=== PATIENT | male | born 1995 | race African-American/Black ===

== ENCOUNTER 2017-01-05 13:22 | Emergency (ER) | payer SELFPAY ==
[~2017-01-05] VITALS: Ht 172.7 cm; Wt 65.0 kg
[2017-01-05 17:25] LABS: HEMATOCRIT. 45.3 % (42.0-52.0); HEMOGLOBIN. 15.3 g/dL (14.0-18.0); MEAN CORPUSCULAR HEMOGLOBIN 28.3 pg (28.0-32.0); MEAN CORPUSCULAR VOLUME 83.7 fL (80.0-94.0); PLATELET 274 x1000/uL (130-400); RED BLOOD CELL COUNT 5.41 mill/uL (4.7-6.1); RED CELL DISTRIBUTION WIDTH 13.2 % (11.6-14.6)
[2017-01-05 17:34] LABS: PLATELET ESTIMATE NORMAL
[2017-01-05 17:45] LABS: *AMPHETAMINES SCREEN URINE NEGATIVE (NEGATIVE); *BARBITURATES SCREEN URINE NEGATIVE (NEGATIVE); *BENZODIAZEPINES SCREEN URINE NEGATIVE (NEGATIVE); *COCAINE SCREEN URINE NEGATIVE (NEGATIVE); CANNABINOID URINE SCREEN PRESUMTIVE POSITIVE (NEGATIVE); METHADONE URINE SCREEN NEGATIVE (NEGATIVE); OPIATES URINE SCREEN NEGATIVE (NEGATIVE); PHENCYCLIDINE URINE SCREEN NEGATIVE (NEGATIVE)
[2017-01-05 20:35] VITALS: BP 127/66
== END 2017-01-05 20:38 | disposition home or self-care (01) ==
LOC: ER 13:32
DX: R53.1 Weakness (principal); F12.10 Cannabis abuse, uncomplicated
CPT/HCPCS: 36415; 80305; 85007; 85027; 99284